=== PATIENT | female | born 1940 | race Caucasian/White ===

== ENCOUNTER 2017-06-21 11:23 | Emergency (ER) | payer MEDICAID ==
[~2017-06-21] VITALS: Ht 154.9 cm; Wt 65.1 kg
[2017-06-21 11:32] VITALS: BP 112/60
--- NOTE | 2017-06-21 11:45 | NUR ---
AFTER PROVIDING URINE SAMPLE, PT AMBULATES TO BED 12
--- NOTE | 2017-06-21 11:50 | NUR ---
PT BIB [facility] FOR COMPLAINTS OF DYSURIA X 2 DAYS. PT SHELLIE N/V/D. PT SAID IT WAS 6/10 WHEN URINATING. PT SAID THAT URINE WAS BLOODY FOR 2 DAYS ALTHOUGH HAS EXPERIENCED LESS BLOOD IN URINE TODAY THEN YESTERDAY. PT DENIES ANY RADIATING PAIN TO BACK AND ABDOMEN.
[2017-06-21] MEDS ORDERED: LEVOFLOXACIN 500 MG TAB PO ONE (12:20)
[2017-06-21] MEDS ORDERED: PHENAZOPYRIDINE 100 MG TAB PO ONE (12:20)
[2017-06-21 13:27] VITALS: BP 115/60
--- NOTE | 2017-06-21 13:27 | NUR ---
Patient discharged with v/s stable. Written and verbal after care instructions given and explained. Patient alert, oriented and verbalized understanding of instructions. Ambulatory with steady gait. All questions addressed prior to discharge. ID band removed. Patient advised to follow up with PMD. Rx of cipro/pyridium given. Patient educated on indication of medication including possible reaction and side effects. Opportunity to ask questions provided and answered.
== END 2017-06-21 13:27 | disposition home or self-care (01) ==
LOC: MED 11:23
DX: N39.0 Urinary tract infection, site not specified (principal); E11.9 Type 2 diabetes mellitus without complications; I10 Essential (primary) hypertension
CPT/HCPCS: 81002; 82948; 99283